=== PATIENT | female | born 1970 | race Caucasian/White ===

== ENCOUNTER 2016-10-03 13:30 | Emergency (ER) | payer BC ==
[~2016-10-03] VITALS: Ht 170.2 cm; Wt 131.0 kg
[2016-10-03] MEDS ORDERED: GABA-531 PO (13:42)
[2016-10-03] MEDS ORDERED: LOSA50TA20 PO (13:42)
[2016-10-03 18:27] VITALS: BP 131/78
== END 2016-10-03 18:30 | disposition home or self-care (01) ==
LOC: ER 16:06
DX: M54.10 Radiculopathy, site unspecified (principal); I10 Essential (primary) hypertension; Z79.899 Other long term (current) drug therapy; Z90.49 Acquired absence of other specified parts of digestive tract; Z90.710 Acquired absence of both cervix and uterus
CPT/HCPCS: 81025; 99282; J7030; Z7610